=== PATIENT | male | born 1995 | race Caucasian/White ===

== ENCOUNTER 2017-05-23 22:49 | Inpatient (IN) | payer OTHER ==
[~2017-05-23] VITALS: Ht 149.9 cm; Wt 38.3 kg
[2017-05-24 00:07] LABS: HEMATOCRIT 50.8 % (38.0-50.0); HEMOGLOBIN 18.3 G/DL (12.5-16.6); MCH 29.9 PG (29.0-34.0); MCV 82.9 FL (86-99); PLATELET COUNT 172 K/uL (156-360); RBC DIS.WIDTH-CV 13.1 % (11.8-14.6); RBC DIS.WIDTH-SD 38.7 % (39-53); RED BLOOD COUNT 6.13 M/uL (4.00-5.50); WHITE BLOOD COUNT 23.1 K/uL (4.1-10.2)
[2017-05-24 00:18] LABS: ALBUMIN 4.8 g/dL (3.2-4.8); CHLORIDE 102 mEq/L (99-109); POTASSIUM 4.6 mEq/L (3.7-5.4); SODIUM 139 mEq/L (136-147)
[2017-05-24 00:21] LABS: GLUCOSE 164 mg/dL (70-99); TOTAL PROTEIN 8.3 g/dL (6.4-8.3)
[2017-05-24 00:23] LABS: TOTAL BILIRUBIN 0.8 mg/dL (0.0-1.0)
[2017-05-24 00:24] LABS: ALKALINE PHOSPHATASE 159 IU/L (3-129); CREATININE 1.2 mg/dL (0.6-1.3); GFR ESTIMATE (CALCULATED) > 59 mL/min/ (58.99-99999)
[2017-05-24 00:25] LABS: UREA NITROGEN (BUN) 32 mg/dL (9-23)
[2017-05-24 00:26] LABS: AST (GOT) 38 IU/L (2-34)
[2017-05-24 00:27] LABS: ALT (GPT) 43 IU/L (3-49)
[2017-05-24 00:28] LABS: LIPASE 4 U/L (1.0-51.0)
[2017-05-24 01:12] LABS: APPEARANCE TURBID ((CLEAR)); BILIRUBIN NEGATIVE; BLOOD MODERATE; COLOR AMBER ((YELLOW)); GLUCOSE (STRIP) NEGATIVE; KETONES 5; LEUKOCYTES LARGE; NITRITE POSITIVE; PROTEIN (STRIP) >=500; SPECIFIC GRAVITY 1.013 (1.000-1.030); UROBILINOGEN 0.2 MG/DL (0.2-1.0)
[2017-05-24 01:27] LABS: AMORPHOUS PHOSPHATE CRYSTALS RARE; BACTERIA 3+ /HPF; EPITHELIAL CELLS NONE SEEN /HPF; MUCUS NONE SEEN /LPF; UCUL ADDED? YES; WHITE BLOOD CELLS TNTC /HPF (0-5)
[2017-05-24 06:20] VITALS: BP 126/76
[2017-05-24 08:37] VITALS: BP 131/23
[2017-05-24] MEDS ORDERED: RANITIDINE15 MG/1 ML GT (09:37)
[2017-05-24] MEDS ORDERED: ZOVIRAX40 MG/ML GT (09:37)
[2017-05-24] MEDS ORDERED: BACTROBAN OINTM22 GM TP (09:37)
[2017-05-24] MEDS ORDERED: MIRALAX17 GM PO (09:38)
[2017-05-24] MEDS ORDERED: CATAPRES0.3 MG PO (09:38)
[2017-05-24] MEDS ORDERED: MELATONIN10 M1 PO (09:38)
[2017-05-24] MEDS ORDERED: PEDIASURE PO (09:39)
[2017-05-24 11:35] VITALS: BP 130/73
[2017-05-24 16:30] VITALS: BP 128/73
[2017-05-24 19:42] VITALS: BP 117/63
[2017-05-25 00:42] VITALS: BP 137/78
[2017-05-25 03:34] VITALS: BP 132/77
[2017-05-25 07:29] LABS: HEMATOCRIT 44.4 % (38.0-50.0); MCH 29.6 PG (29.0-34.0); MCHC 34.7 G/DL (30.0-36.0); MCV 85.2 FL (86-99); PLATELET COUNT 133 K/uL (156-360); RBC DIS.WIDTH-CV 13.5 % (11.8-14.6); RBC DIS.WIDTH-SD 42.3 % (39-53); RED BLOOD COUNT 5.21 M/uL (4.00-5.50); WHITE BLOOD COUNT 15.5 K/uL (4.1-10.2)
[2017-05-25 07:31] LABS: HEMOGLOBIN 15.4 G/DL (12.5-16.6)
[2017-05-25 07:37] LABS: ALBUMIN 3.8 G/DL (3.2-4.8); ALKALINE PHOSPHATASE 110 IU/L (3-129); ALT (GPT) 25 IU/L (3-49); AST (GOT) 24 IU/L (2-34); CHLORIDE 105 MEQ/L (99-109); POTASSIUM 3.9 MEQ/L (3.7-5.4); SODIUM 144 MEQ/L (136-147); TOTAL BILIRUBIN 0.9 MG/DL (0.0-1.0); TOTAL PROTEIN 6.5 G/DL (6.4-8.3); UREA NITROGEN (BUN) 20 mg/dL (9-23)
[2017-05-25 07:42] LABS: CREATININE 0.6 MG/DL (0.6-1.3); GFR ESTIMATE (CALCULATED) > 59 mL/min/ (58.99-99999); GLUCOSE 83 mg/dL (70-99)
[2017-05-25 08:43] VITALS: BP 132/71
[2017-05-25 11:40] VITALS: BP 126/66
[2017-05-25 19:25] VITALS: BP 129/83
[2017-05-26 00:12] VITALS: BP 129/83
[2017-05-26 06:10] VITALS: BP 131/83
[2017-05-26 08:09] VITALS: BP 135/77
[2017-05-26 09:00] LABS: HEMATOCRIT 46.3 % (38.0-50.0); HEMOGLOBIN 16.3 G/DL (12.5-16.6); MCH 29.5 PG (29.0-34.0); MCHC 35.2 G/DL (30.0-36.0); MCV 83.9 FL (86-99); PLATELET COUNT 159 K/uL (156-360); RBC DIS.WIDTH-CV 12.8 % (11.8-14.6); RBC DIS.WIDTH-SD 39.4 % (39-53); RED BLOOD COUNT 5.52 M/uL (4.00-5.50); WHITE BLOOD COUNT 12.3 K/uL (4.1-10.2)
[2017-05-26 10:04] LABS: CHLORIDE 103 MEQ/L (99-109); CREATININE 0.6 MG/DL (0.6-1.3); GFR ESTIMATE (CALCULATED) > 59 mL/min/ (58.99-99999); GLUCOSE 95 mg/dL (70-99); POTASSIUM 4.3 MEQ/L (3.7-5.4); SODIUM 141 MEQ/L (136-147); UREA NITROGEN (BUN) 12 mg/dL (9-23)
[2017-05-26 11:35] VITALS: BP 139/74
[2017-05-26 15:45] VITALS: BP 151/75
[2017-05-26 19:50] VITALS: BP 138/89
[2017-05-27 04:22] VITALS: BP 140/90
[2017-05-27 09:06] VITALS: BP 141/96
[2017-05-27] MEDS ORDERED: CEFTIN125 MG/5 M GT (11:09)
[2017-05-27 11:45] VITALS: BP 132/80
[2017-05-27] MEDS ORDERED: AMOXICILLI400 MG/5 M GT (15:47)
== END 2017-05-27 16:55 | disposition home health service (06) | DRG 872 ==
LOC: EME 22:49 → EDOF 05-24 04:18 → 3EAST 05-24 04:18 → ENRESERV 05-24 04:19 → 3EAST 05-24 05:58
PROVIDERS: Emergency Medicine; Family Medicine; Hospitalist; Physician Assistant Medical
DX: A41.59 Other Gram-negative sepsis (principal); N13.6 Pyonephrosis; N30.01 Acute cystitis with hematuria; E86.0 Dehydration; Z93.1 Gastrostomy status; K59.00 Constipation, unspecified; R11.2 Nausea with vomiting, unspecified; R73.9 Hyperglycemia, unspecified; G80.8 Other cerebral palsy; G91.4 Hydrocephalus in diseases classified elsewhere; Q93.5 Other deletions of part of a chromosome; R63.6 Underweight; J45.909 Unspecified asthma, uncomplicated; G40.909 Epilepsy, unspecified, not intractable, without status epilepticus; R62.50 Unspecified lack of expected normal physiological development in childhood
CPT/HCPCS: 74018; 74177; 80048; 80053; 81003; 82948; 83605; 83690; 85027; 87040; 87077; 87086; 87186; 87651 90; 99281; 99285; J0696; J1200; J1650; J2405; J7040; J7120

== ENCOUNTER 2017-06-06 18:37 | Emergency (ER) | payer OTHER ==
[~2017-06-06] VITALS: Ht 144.8 cm; Wt 34.0 kg
[~2017-06-06 18:37] MED LIST: AMOXICILLI400 MG/5 M GT; BACTROBAN OINTM22 GM TP; CATAPRES0.3 MG PO; CEFTIN125 MG/5 M GT; MELATONIN10 M1 PO; MIRALAX17 GM PO; PEDIASURE PO; RANITIDINE15 MG/1 ML GT; ZOVIRAX40 MG/ML GT
[2017-06-06 22:54] LABS: HEMATOCRIT 48.1 % (38.0-50.0); HEMOGLOBIN 17.1 G/DL (12.5-16.6); MCH 29.8 PG (29.0-34.0); MCHC 35.6 G/DL (30.0-36.0); MCV 83.8 FL (86-99); RBC DIS.WIDTH-CV 12.8 % (11.8-14.6); RBC DIS.WIDTH-SD 38.1 % (39-53); RED BLOOD COUNT 5.74 M/uL (4.00-5.50); WHITE BLOOD COUNT 13.2 K/uL (4.1-10.2)
[2017-06-06 22:56] LABS: PLATELET COUNT 261 K/uL (156-360)
[2017-06-06 23:05] LABS: ALBUMIN 4.8 g/dL (3.2-4.8); CHLORIDE 103 mEq/L (99-109); POTASSIUM 3.7 mEq/L (3.7-5.4); SODIUM 139 mEq/L (136-147)
[2017-06-06 23:07] LABS: GLUCOSE 94 mg/dL (70-99); TOTAL PROTEIN 8.8 g/dL (6.4-8.3)
[2017-06-06 23:09] LABS: TOTAL BILIRUBIN 0.6 mg/dL (0.0-1.0)
[2017-06-06 23:10] LABS: APPEARANCE SL.HAZY ((CLEAR)); BILIRUBIN NEGATIVE; BLOOD NEGATIVE; COLOR YELLOW ((YELLOW)); GLUCOSE (STRIP) NEGATIVE; KETONES 20; LEUKOCYTES TRACE; NITRITE NEGATIVE; PROTEIN (STRIP) NEGATIVE; SPECIFIC GRAVITY 1.016 (1.000-1.030); UROBILINOGEN 0.2 MG/DL (0.2-1.0)
[2017-06-06 23:11] LABS: ALKALINE PHOSPHATASE 147 IU/L (3-129); CREATININE 0.8 mg/dL (0.6-1.3); GFR ESTIMATE (CALCULATED) > 59 mL/min/ (58.99-99999)
[2017-06-06 23:12] LABS: UREA NITROGEN (BUN) 14 mg/dL (9-23)
[2017-06-06 23:13] LABS: AST (GOT) 30 IU/L (2-34)
[2017-06-06 23:14] LABS: ALT (GPT) 52 IU/L (3-49)
[2017-06-06 23:16] LABS: BACTERIA NONE SEEN /HPF; EPITHELIAL CELLS NONE SEEN /HPF; MUCUS TRACE /LPF; UCUL ADDED? NO; WHITE BLOOD CELLS 0-5 /HPF (0-5)
[2017-06-07 01:23] VITALS: BP 000/00
== END 2017-06-07 01:24 | disposition home or self-care (01) ==
LOC: EME 18:37
PROVIDERS: Physician Assistant
DX: R50.9 Fever, unspecified (principal); R34 Anuria and oliguria; D72.829 Elevated white blood cell count, unspecified; G80.9 Cerebral palsy, unspecified; G91.9 Hydrocephalus, unspecified; Z96.0 Presence of urogenital implants; Z93.1 Gastrostomy status
CPT/HCPCS: 71045; 80053; 81003; 83605; 85027; 87040; 87502; 99281; 99284

== ENCOUNTER 2017-07-03 11:50 | Inpatient (IN) | payer OTHER ==
[~2017-07-03] VITALS: Ht 147.3 cm; Wt 38.3 kg
[~2017-07-03 11:50] MED LIST changes: +CATAPRES0.3 MG GT; -CATAPRES0.3 MG PO; +MELATONIN10 M1 GT; -MELATONIN10 M1 PO; +MIRALAX17 GM GT; -MIRALAX17 GM PO
[2017-07-03 13:24] LABS: HEMOGLOBIN 15.9 G/DL (12.5-16.6); MCH 29.8 PG (29.0-34.0); MCHC 35.3 G/DL (30.0-36.0); MCV 84.4 FL (86-99); PLATELET COUNT 153 K/uL (156-360); RBC DIS.WIDTH-CV 12.9 % (11.8-14.6); RBC DIS.WIDTH-SD 39.6 % (39-53); RED BLOOD COUNT 5.33 M/uL (4.00-5.50); WHITE BLOOD COUNT 13.5 K/uL (4.1-10.2)
[2017-07-03 13:32] LABS: ALBUMIN 4.4 g/dL (3.2-4.8); CHLORIDE 102 mEq/L (99-109); POTASSIUM 4.5 mEq/L (3.7-5.4); SODIUM 140 mEq/L (136-147)
[2017-07-03 13:34] LABS: GLUCOSE 101 mg/dL (70-99); TOTAL PROTEIN 8.3 g/dL (6.4-8.3)
[2017-07-03 13:36] LABS: TOTAL BILIRUBIN 0.8 mg/dL (0.0-1.0)
[2017-07-03 13:38] LABS: ALKALINE PHOSPHATASE 142 IU/L (3-129); CREATININE 0.7 mg/dL (0.6-1.3); GFR ESTIMATE (CALCULATED) > 59 mL/min/ (58.99-99999)
[2017-07-03 13:39] LABS: AST (GOT) 37 IU/L (2-34); UREA NITROGEN (BUN) 14 mg/dL (9-23)
[2017-07-03 13:40] LABS: DIRECT BILIRUBIN 0.3 mg/dL (0.0-0.3)
[2017-07-03 13:41] LABS: ALT (GPT) 33 IU/L (3-49)
[2017-07-03 14:52] LABS: APPEARANCE SL.HAZY ((CLEAR)); BILIRUBIN NEGATIVE; BLOOD LARGE; COLOR YELLOW ((YELLOW)); GLUCOSE (STRIP) NEGATIVE; KETONES 5; LEUKOCYTES MODERATE; NITRITE NEGATIVE; PROTEIN (STRIP) 100; SPECIFIC GRAVITY 1.059 (1.000-1.030)
[2017-07-03 15:38] LABS: RED BLOOD CELLS TNTC /HPF (0-5); WHITE BLOOD CELLS 15-20 /HPF (0-5)
[2017-07-03 15:39] LABS: EPITHELIAL CELLS RARE /HPF; MUCUS 4+ /LPF
[2017-07-03 15:42] LABS: BACTERIA 2+ /HPF; UCUL ADDED? YES
[2017-07-03] MEDS ORDERED: CHILDREN'S5 MG/5 M1 GT (16:14)
[2017-07-03] MEDS ORDERED: CELEXA20 MG GT (16:15)
[2017-07-03] MEDS ORDERED: XANAX0.5 MG GT (16:15)
[2017-07-03 18:35] VITALS: BP 110/64
[2017-07-03 20:15] VITALS: BP 112/68
[2017-07-03 23:33] VITALS: BP 118/76
[2017-07-04 03:58] VITALS: BP 108/62
[2017-07-04 07:16] VITALS: BP 120/60
[2017-07-04 07:18] LABS: BASOPHIL (%) 0.2 % (0-1); EOSINOPHIL COUNT 0.1 K/uL (0-0.3); HEMATOCRIT 44.1 % (38.0-50.0); HEMOGLOBIN 15.1 G/DL (12.5-16.6); IMMATURE GRANULOCYTE (%) 0.4 % (0.0-0.7); LYMPHOCYTE (%) 18.7 % (15-42); LYMPHOCYTE COUNT 2.1 K/uL (1.0-2.8); MCH 28.9 PG (29.0-34.0); MCHC 34.2 G/DL (30.0-36.0); MCV 84.5 FL (86-99); MONOCYTE (%) 10.9 % (3-12); MONOCYTE COUNT 1.2 K/uL (0-0.8); NEUTROPHIL (%) 68.8 % (45-76); NEUTROPHIL COUNT 7.5 K/uL (1.8-6.4); PLATELET COUNT 166 K/uL (156-360); RBC DIS.WIDTH-CV 12.7 % (11.8-14.6); RBC DIS.WIDTH-SD 39.4 % (39-53); RED BLOOD COUNT 5.22 M/uL (4.00-5.50)
[2017-07-04 07:40] LABS: CHLORIDE 104 MEQ/L (99-109); CREATININE 0.5 MG/DL (0.6-1.3); GFR ESTIMATE (CALCULATED) > 59 mL/min/ (58.99-99999); GLUCOSE 83 mg/dL (70-99); POTASSIUM 3.9 MEQ/L (3.7-5.4); SODIUM 138 MEQ/L (136-147); UREA NITROGEN (BUN) 10 mg/dL (9-23)
[2017-07-04 09:22] LABS: ALKALINE PHOSPHATASE 107 IU/L (3-129); ALT (GPT) 27 IU/L (3-49); AST (GOT) 28 IU/L (2-34); DIRECT BILIRUBIN 0.1 mg/dL (0.0-0.3); TOTAL BILIRUBIN 0.5 MG/DL (0.0-1.0); TOTAL PROTEIN 6.9 G/DL (6.4-8.3)
[2017-07-04 12:13] VITALS: BP 110/60
[2017-07-04 19:26] VITALS: BP 122/67
[2017-07-05 06:45] LABS: BASOPHIL (%) 0.3 % (0-1); EOSINOPHIL (%) 1.9 % (0-5); EOSINOPHIL COUNT 0.2 K/uL (0-0.3); IMMATURE GRANULOCYTE (%) 0.3 % (0.0-0.7); LYMPHOCYTE (%) 33.6 % (15-42); LYMPHOCYTE COUNT 2.9 K/uL (1.0-2.8); MCH 29.5 PG (29.0-34.0); MCHC 34.9 G/DL (30.0-36.0); MCV 84.6 FL (86-99); MONOCYTE (%) 11.2 % (3-12); NEUTROPHIL (%) 52.7 % (45-76); NEUTROPHIL COUNT 4.5 K/uL (1.8-6.4); PLATELET COUNT 204 K/uL (156-360); RBC DIS.WIDTH-CV 12.8 % (11.8-14.6); RBC DIS.WIDTH-SD 39.1 % (39-53); RED BLOOD COUNT 5.08 M/uL (4.00-5.50); WHITE BLOOD COUNT 8.6 K/uL (4.1-10.2)
[2017-07-05 07:04] LABS: CHLORIDE 105 MEQ/L (99-109); CREATININE 0.6 MG/DL (0.6-1.3); GFR ESTIMATE (CALCULATED) > 59 mL/min/ (58.99-99999); GLUCOSE 90 mg/dL (70-99); POTASSIUM 4.4 MEQ/L (3.7-5.4); SODIUM 140 MEQ/L (136-147); UREA NITROGEN (BUN) 7 mg/dL (9-23)
[2017-07-05 07:32] VITALS: BP 122/72
[2017-07-05 16:53] VITALS: BP 120/70
[2017-07-05 17:23] VITALS: BP 120/70
[2017-07-05 23:40] VITALS: BP 121/76
[2017-07-06 07:31] VITALS: BP 118/64
[2017-07-06 07:40] VITALS: BP 109/62
[2017-07-06 07:51] VITALS: BP 118/64
[2017-07-06] MEDS ORDERED: BACTRIM,SEPTRA S1 ML GT (11:05)
== END 2017-07-06 12:33 | disposition home health service (06) | DRG 699 ==
LOC: EME 11:50 → 5SOUTH 16:07 → EDOF 16:07 → ENRESERV 16:09 → 5SOUTH 18:27
PROVIDERS: Hospitalist; Internal Medicine; Physician Assistant Medical
DX: T83.518A Infection and inflammatory reaction due to other urinary catheter, initial encounter (principal); N39.0 Urinary tract infection, site not specified; B95.61 Methicillin susceptible Staphylococcus aureus infection as the cause of diseases classified elsewhere; Y84.6 Urinary catheterization as the cause of abnormal reaction of the patient, or of later complication, without mention of misadventure at the time of the procedure; L03.311 Cellulitis of abdominal wall; N31.9 Neuromuscular dysfunction of bladder, unspecified; R47.01 Aphasia; G80.9 Cerebral palsy, unspecified; G91.4 Hydrocephalus in diseases classified elsewhere; Q93.5 Other deletions of part of a chromosome; Z93.1 Gastrostomy status; J45.909 Unspecified asthma, uncomplicated; G40.909 Epilepsy, unspecified, not intractable, without status epilepticus; R62.59 Other lack of expected normal physiological development in childhood; Z87.440 Personal history of urinary (tract) infections
CPT/HCPCS: 74177; 80048; 80076; 81003; 83605; 85025; 85027; 87040; 87077; 87086; 87147; 87186; 99281; 99285; J0696; J1644; J7030